=== PATIENT | female | born 1945 | race Caucasian/White ===

== ENCOUNTER 2017-09-05 23:44 | Emergency (ER) | payer MEDICARE, MEDICAID ==
[~2017-09-05] VITALS: Ht 170.2 cm; Wt 90.7 kg
[~2017-09-05 23:44] MED LIST: ACETAMINOPHEN325 M1 PO; ANTIVERT25 MG PO; KEFLEX250 MG PO; NORCO 5-325 TA1 EACH PO; TRANSDERM-SCOP1 EA TD
[2017-09-06] MEDS ORDERED: PROTONIX40 MG PO (01:14)
--- NOTE | 2017-09-06 13:22 | EKG ---
[facility] [address] [facility] [place] [address] Signed Sinus rhythm with premature atrial complexes Otherwise normal ECG No previous ECGs available Confirmed by EHSAN BLACKBURN MD ([id number]) on 09/06/2017 1:22:41 PM Electronically Signed By: EHSAN BLACKBURN MD 09/06/17 1322 PATIENT NAME: SERINA GUERRERO Electrocardiogram DATE OF : 45 PHYSICIAN: EHSAN BLACKBURN MD REPORT #: [id number] REPORT IS CONFIDENTIAL AND NOT TO BE RELEASED WITHOUT AUTHORIZATION
== END 2017-09-06 01:26 | disposition home or self-care (01) ==
LOC: ED 23:44
DX: R07.89 Other chest pain (principal); F31.9 Bipolar disorder, unspecified; F17.200 Nicotine dependence, unspecified, uncomplicated; Z90.49 Acquired absence of other specified parts of digestive tract; Z90.710 Acquired absence of both cervix and uterus
CPT/HCPCS: 71045; 80053; 84484; 85025; 85379; 93005; 93010; 99284

== ENCOUNTER 2017-12-30 20:05 | Emergency (ER) | payer MEDICARE, MEDICAID ==
[~2017-12-30] VITALS: Ht 170.2 cm; Wt 90.7 kg
[~2017-12-30 20:05] MED LIST changes: +PROTONIX40 MG PO
== END 2017-12-30 21:48 | disposition home or self-care (01) ==
LOC: ED 20:05
DX: L72.8 Other follicular cysts of the skin and subcutaneous tissue (principal); F17.200 Nicotine dependence, unspecified, uncomplicated
CPT/HCPCS: 99282

== ENCOUNTER 2018-09-09 05:40 | Day surgery (SDC) | payer MEDICARE, MEDICAID ==
[~2018-09-09] VITALS: Ht 170.2 cm; Wt 83.5 kg
[~2018-09-09 05:40] MED LIST changes: +ALEVE220 M1 PO; +FOSAMAX70 MG PO; +TYLENOL325 M1 PO
[2018-09-09] MEDS ORDERED: IBUPROFEN600 MG PO (08:34)
--- NOTE | 2018-09-09 23:51 | OR ---
[facility] [address] [place], [place] [address] Signed DATE OF OPERATION: 09/09/2018 SURGEON: Gorge Zaman MD PREOPERATIVE DIAGNOSIS: Right upper lobe lung cancer status post right upper lobe resection (thoracoscopic approach, Dr. Cooper). POSTOPERATIVE DIAGNOSIS: Right upper lobe lung cancer status post right upper lobe resection (thoracoscopic approach, Dr. Cooper). PROCEDURES: 1. Placement of left subclavian Port-A-Cath device (Bard port catheter). 2. Surgeon-directed fluoroscopy. ANESTHESIA: Local with monitored anesthesia care, Cassy Bailey CRNA and local 8 mL of 1% lidocaine with epinephrine. INDICATION: This 73-year-old white woman is a patient of Dr. Cleopatra Rain and was found to have a large right upper lobe lung mass. She underwent thoracoscopic resection by Dr. Cooper in the [facility], was found to have no mediastinal lymph node involvement, but given the large size of the lesion, chemotherapy has been recommended by Dr. Lopez, her oncologist. She is admitted at this time to undergo Port-A-Cath placement, anticipating chemotherapy. She understands the risks of bleeding, infection, pneumothorax, and other unforeseen complications related to placement of the device and wished to proceed. FINDINGS: Dark nonpulsatile blood was noted from left subclavian vein. The catheter was placed without problem. The tip of the catheter was noted to be in the superior vena cava. A postprocedure chest x-ray is pending. Good function of the catheter is noted. DESCRIPTION OF PROCEDURE: The patient was brought to the operating room and placed in the supine position with arms at the side. Preoperative antibiotics were given. Sequential compression device stockings used and heparin subcutaneously administered. The upper torso was prepared with a chlorhexidine solution as she was given intravenous sedation. The head turned to the right. The left infraclavicular space was infiltrated with 1% lidocaine with Electronically Signed By: GORGE ZAMAN MD 09/09/18 2351 PATIENT NAME: SERINA GUERRERO OPERATIVE REPORT DATE OF : 45 REPORT #: [id number] PHYSICIAN: GORGE ZAMAN MD PCP: CLEOPATRA RAIN MD REPORT IS CONFIDENTIAL AND NOT TO BE RELEASED WITHOUT AUTHORIZATION [facility] [address] [place], [place] [address] Signed epinephrine. Using the Seldinger technique, the left subclavian vein was easily accessed on 1st pass showing dark nonpulsatile blood. A flexible J-wire from the Penemarie K Murphy port catheter kit was passed down the needle and needle was removed. The fluoroscopy was then performed confirming the wire to be in the right heart system. Additional local anesthetic was injected transversely over the left pectoral area and incision was made and a pocket developed using blunt and electrocautery dissection. The puncture site with the wire emanating from it was incised with an #11 blade. Subsequently dilator and then a dilator and peel-away introducer passed over the wire. The wire and the dilator were removed showing vigorous nonpulsatile retrograde bleeding of venous blood. The previously inspected and irrigated Groshong type catheter was passed down the peel-away sheath. The sheath removed. Aspiration on the catheter showed good return of blood and easy flushing. Not mentioned previously was the partial securing of the port device to the pocket inferiorly. The patient was placed in the neutral position out of mild Trendelenburg and fluoroscopy undertaken. Under fluoroscopic observation, the catheter was withdrawn so that the tip of the catheter is located in the superior vena cava. Using the tunneling device, the catheter was delivered to the pocket area. It was trimmed to the appropriate length and secured to the port with the enclosed collar device per manufacture's instructions. The port was fully secured to the pectoralis fascia with interrupted 2-0 Vicryl suture. Three such sutures were applied so as to avoid rotation of the device. Access of the port device with an angled Craig needle showed easy withdrawal of blood and easy infusion of heparinized saline. The pocket was then closed with interrupted 2-0 Vicryl and skin closed with running subcuticular 3-0 Vicryl as was a puncture site in the infraclavicular space. Percutaneous access of the device with angled Craig needle showed good function of the catheter, easy flushing, and so forth. It aspirated blood well also. Steri-Strips were applied to the wounds as was a Mepilex silver sponge dressing and an OpSite. The postprocedure chest x-ray is anticipated in recovery room. Blood loss was about 10 mL in total. Gorge Zaman MD Electronically Signed By: GORGE ZAMAN MD 09/09/18 0593 PATIENT NAME: SERINA GUERRERO OPERATIVE REPORT DATE OF : 45 REPORT #: [id number] PHYSICIAN: GORGE ZAMAN MD PCP: CLEOPATRA RAIN MD REPORT IS CONFIDENTIAL AND NOT TO BE RELEASED WITHOUT AUTHORIZATION [facility] [address] [place], [place] [address] Signed /[facility] /[id number] cc: MD Cleopatra Panchal MD Copies: MARY JO LOPEZ MD ~ Electronically Signed By: GORGE ZAMAN MD 09/09/18 2351 PATIENT NAME: YOLANDASERINA OPERATIVE REPORT DATE OF : 45 REPORT #: [id number] PHYSICIAN: GORGE ZAMAN MD PCP: CLEOPATRA RAIN MD REPORT IS CONFIDENTIAL AND NOT TO BE RELEASED WITHOUT AUTHORIZATION
[2018-09-17] MEDS ORDERED: ONDANSETRON ODT8 MG PO (09:21)
[2018-09-17] MEDS ORDERED: ATIVAN1 MG PO (09:22)
[2018-09-17] MEDS ORDERED: FOLIC ACID0.4 MG PO (09:23)
[2018-09-17] MEDS ORDERED: DEXAMETHASONE4 MG PO (09:24)
[2018-10-08] MEDS ORDERED: IBUPROFEN200 M1 PO (13:07)
== END 2018-09-09 09:15 | disposition home or self-care (01) ==
LOC: DS 05:40
PROVIDERS: Surgery
PROC: 05H633Z Insertion of Infusion Device into Left Subclavian Vein, Percutaneous Approach (ICD-10-PCS; 2018-09-09)
PROC: B517YZA Fluoroscopy of Left Subclavian Vein using Other Contrast, Guidance (ICD-10-PCS; 2018-09-09)
PROC: 0JH60WZ Insertion of Totally Implantable Vascular Access Device into Chest Subcutaneous Tissue and Fascia, Open Approach (ICD-10-PCS; principal; 2018-09-09 06:45)
DX: C34.11 Malignant neoplasm of upper lobe, right bronchus or lung (principal); I48.92 Unspecified atrial flutter; F32.9 Major depressive disorder, single episode, unspecified; E11.9 Type 2 diabetes mellitus without complications; F17.210 Nicotine dependence, cigarettes, uncomplicated; E66.9 Obesity, unspecified; Z68.30 Body mass index [BMI] 30.0-30.9, adult; Z90.2 Acquired absence of lung [part of]
CPT/HCPCS: 00532; 71045; 77001; C1788; J0690; J1644; J2250; J2704; J3010

== ENCOUNTER 2018-09-15 03:19 | Emergency (ER) | payer MEDICARE, MEDICAID ==
[~2018-09-15] VITALS: Ht 170.2 cm; Wt 83.5 kg
[~2018-09-15 03:19] MED LIST changes: +IBUPROFEN600 MG PO
[2018-09-15] MEDS ORDERED: KEFLEX500 MG PO (03:42)
[2018-09-17] MEDS ORDERED: ONDANSETRON ODT8 MG PO (09:21)
[2018-09-17] MEDS ORDERED: ATIVAN1 MG PO (09:22)
[2018-09-17] MEDS ORDERED: FOLIC ACID0.4 MG PO (09:23)
[2018-09-17] MEDS ORDERED: DEXAMETHASONE4 MG PO (09:24)
[2018-10-08] MEDS ORDERED: IBUPROFEN200 M1 PO (13:07)
== END 2018-09-15 03:51 | disposition home or self-care (01) ==
LOC: ED 03:19
DX: L03.221 Cellulitis of neck (principal); F31.9 Bipolar disorder, unspecified; F17.200 Nicotine dependence, unspecified, uncomplicated; Z85.118 Personal history of other malignant neoplasm of bronchus and lung; Z79.899 Other long term (current) drug therapy
CPT/HCPCS: 99283

== ENCOUNTER 2018-10-17 12:46 | Emergency (ER) | payer MEDICARE, MEDICAID ==
[~2018-10-17] VITALS: Ht 170.2 cm; Wt 82.1 kg
[~2018-10-17 12:46] MED LIST changes: +ATIVAN1 MG PO; +DEXAMETHASONE4 MG PO; +FOLIC ACID0.4 MG PO; +IBUPROFEN200 M1 PO; +KEFLEX500 MG PO; +ONDANSETRON ODT8 MG PO
[2018-10-17] MEDS ORDERED: OXYCODONE HCL5 MG PO (12:51)
== END 2018-10-17 16:20 | disposition home or self-care (01) ==
LOC: ED 12:46
DX: R10.9 Unspecified abdominal pain (principal); F31.9 Bipolar disorder, unspecified; F17.200 Nicotine dependence, unspecified, uncomplicated; Z79.899 Other long term (current) drug therapy
CPT/HCPCS: 99283

== ENCOUNTER 2021-04-12 09:13 | Emergency (ER) | payer MEDICARE, MEDICAID ==
[~2021-04-12] VITALS: Ht 170.2 cm; Wt 81.7 kg
[~2021-04-12 09:13] MED LIST changes: +ALIMTA IV; +CARBOPLATIN150 MG IV; +EMEND150 MG IV; +FLONASE ALLERG9.9 ML NAS; +LIPITOR20 MG; +MIRALAX119 GM; +ONDANSETRO8 MG/50 M2 IV; +OXYCODONE HCL5 MG PO; +POTASSIUM CHLO10 ME1 PO; +PREDNISONE20 MG PO; +TYLENOL325 MG PO; +ULTRAM50 MG PO; +VENTOLIN HFA18 GM INH; +ZITHROMAX250 MG PO
[2021-04-12] MEDS ORDERED: CITALOPRAM HBR20 MG PO (09:45)
--- NOTE | 2021-04-14 12:54 | EKG ---
[facility] [address] [facility] [place] [address] Signed Normal sinus rhythm Normal ECG No previous ECGs available Confirmed by EHSAN BLACKBURN MD ([id number]) on 04/14/2021 12:54:02 PM Electronically Signed By: EHSAN BLACKBURN MD 04/14/21 1254 PATIENT NAME: SERINA GUERRERO Electrocardiogram DATE OF : 45 PHYSICIAN: EHSAN BLACKBURN MD REPORT #: [id number] REPORT IS CONFIDENTIAL AND NOT TO BE RELEASED WITHOUT AUTHORIZATION
== END 2021-04-12 13:06 | disposition home or self-care (01) ==
LOC: ED 09:13
DX: R53.81 Other malaise (principal); F17.200 Nicotine dependence, unspecified, uncomplicated; Z79.899 Other long term (current) drug therapy; Z20.822 Contact with and (suspected) exposure to COVID-19
CPT/HCPCS: 71045; 80053; 81001; 84484; 85025; 85651; 93005; 93010; 99285-25; C9803; U0003

== ENCOUNTER 2021-05-20 10:25 | Emergency (ER) | payer MEDICARE, MEDICAID ==
[~2021-05-20] VITALS: Ht 167.6 cm; Wt 81.7 kg
[~2021-05-20 10:25] MED LIST changes: +CITALOPRAM HBR20 MG PO
== END 2021-05-20 14:15 | disposition home or self-care (01) ==
LOC: ED 10:25
PROC: 0HQFXZZ Repair Right Hand Skin, External Approach (ICD-10-PCS; principal; 2021-05-20)
DX: S61.212A Laceration without foreign body of right middle finger without damage to nail, initial encounter (principal); W27.4XXA Contact with kitchen utensil, initial encounter; F17.200 Nicotine dependence, unspecified, uncomplicated; Z85.118 Personal history of other malignant neoplasm of bronchus and lung
CPT/HCPCS: 12001; 99282-25

== ENCOUNTER 2022-05-07 22:15 | Emergency (ER) | payer MEDICARE, MEDICAID ==
[~2022-05-07] VITALS: Ht 167.6 cm; Wt 79.7 kg
[2022-05-07] MEDS ORDERED: CEPHALEXIN500 M1 PO (22:37)
[2022-05-07] MEDS ORDERED: ALENDRONATE SOD70 MG PO (22:37)
[2022-05-07] MEDS ORDERED: ATORVASTATIN CA20 MG PO (22:38)
[2022-05-07] MEDS ORDERED: CITALOPRAM HBR40 MG PO (22:38)
== END 2022-05-07 23:17 | disposition home or self-care (01) ==
LOC: ED 22:15
DX: L03.011 Cellulitis of right finger (principal); F17.200 Nicotine dependence, unspecified, uncomplicated; Z79.899 Other long term (current) drug therapy
CPT/HCPCS: 99283; A9270

== ENCOUNTER 2023-07-10 07:05 | Day surgery (SDC) | payer MEDICARE, MEDICAID ==
[~2023-07-10] VITALS: Ht 165.1 cm; Wt 79.0 kg
[~2023-07-10 07:05] MED LIST changes: +ALENDRONATE SOD70 MG PO; +ATORVASTATIN CA20 MG PO; +CEPHALEXIN500 M1 PO; +CITALOPRAM HBR40 MG PO
[2023-07-10 07:20] VITALS: BP 140/59
[2023-07-10] MEDS ORDERED: HYDROCODON-ACE1 EA10 PO (09:04)
[2023-07-10 09:36] VITALS: BP 137/49
--- NOTE | 2023-07-13 07:07 | OR ---
[facility] [address] [place], [place] [address] Signed DATE OF OPERATION: 06/09/2023 SURGEON: Josh Webb MD PREOPERATIVE DIAGNOSIS: Trigger finger, left long. POSTOPERATIVE DIAGNOSIS: Trigger finger, left long. PROCEDURE PERFORMED: Trigger finger release, left long. AIRPORT SECURITY SCREENER: None. ANESTHESIA: Kotlik block. TOURNIQUET TIME: 20 minutes. BRIEF HISTORY: Julieta is a 78-year-old female with a long-standing trigger finger that we have been injecting, but she got minimal relief. Risks and benefits of operative treatment were discussed with her and she elected to proceed. DESCRIPTION OF PROCEDURE: Once consent was obtained, she was taken to the operating room. After adequate Micky block was established, the hand was prepped and draped in a standard sterile fashion. The long finger was approached through a 1 cm incision in the distal palmar crease. This was carried through the soft tissue down to the flexor tendon sheath. This was dissected free of overlying soft tissue under loupe magnification. The A1 smooth was identified and was transected using tenotomy scissors. The finger was then moved. She had full flexion and full extension with no triggering or locking. The wound was copiously irrigated with normal saline, closed with 3-0 nylon and injected with 4 mL of 0.25% Marcaine plain. The hand was then dressed with bacitracin, Adaptic, 4 x 8s, and gauze. She tolerated the procedure well. All sponge, needle, and instrument counts were correct. Electronically Signed By: JOSH WEBB MD 07/13/23 0707 PATIENT NAME: JULIETA GUERRERO OPERATIVE REPORT DATE OF : 45 REPORT #: [id number] PHYSICIAN: JOSH WEBB MD PCP: JARETT HEATH MD REPORT IS CONFIDENTIAL AND NOT TO BE RELEASED WITHOUT AUTHORIZATION [address] [place] [address] Signed Josh Webb MD /[facility] /[id number] Copies: ~ Electronically Signed By: JOSH WEBB MD 07/13/23 0707 PATIENT NAME: JULIETA GUERRERO OPERATIVE REPORT DATE OF : 45 REPORT #: [id number] PHYSICIAN: JOSH WEBB MD PCP: JARETT HEATH MD REPORT IS CONFIDENTIAL AND NOT TO BE RELEASED WITHOUT AUTHORIZATION
== END 2023-07-10 09:50 | disposition home or self-care (01) ==
LOC: DS 07:05
PROVIDERS: ATTEND Specialist
PROC: 0RNX0ZZ Release Left Finger Phalangeal Joint, Open Approach (ICD-10-PCS; principal; 2023-07-10 09:15)
DX: M65.332 Trigger finger, left middle finger (principal); E78.00 Pure hypercholesterolemia, unspecified; F17.200 Nicotine dependence, unspecified, uncomplicated
CPT/HCPCS: 01810; J0690; J1100; J1885; J2405; J2704; J2765; J3010; J7121

== ENCOUNTER 2024-01-20 11:25 | Emergency (ER) | payer MEDICARE, OTHER ==
[~2024-01-20] VITALS: Ht 165.1 cm; Wt 79.2 kg
[~2024-01-20 11:25] MED LIST changes: +HYDROCODON-ACE1 EA10 PO
[2024-01-20 11:37] LABS: BASOPHILS 0.5 % (0-2); EOSINOPHILS 0.9 % (0-6); HEMATOCRIT 43.3 % (35.0-50.0); HEMOGLOBIN 14.3 g/dL (12.0-18.0); LYMPHOCYTES 34.4 % (24-44); MCH 30.1 (27-36); MCHC 33.1 g/dl (30-36); MCV 91.1 fl (81-99); MONOCYTES 6.7 % (0-12); NEUTROPHILS 57.5 % (39-80); PLATELET COUNT 274 K/uL (140-440); RBC 4.75 M/ul (4.3-5.7); RDW 15.7 (10.5-15.0)
[2024-01-20 11:53] LABS: ALBUMIN 3.4 g/dL (3.4-5.0); ALBUMIN/GLOBULIN RATIO 0.97 (1.1-2.4); ALCOHOL, MEDICAL <3 ng/dL (<3); ALKALINE PHOSPHATASE 80 U/L (46-116); ALT (SGPT) 8 U/L (14-59); ANION GAP 16.8 (7-21); AST (SGOT) 9 U/L (15-37); BILIRUBIN, TOTAL 0.4 ng/dL (0.2-1.0); BUN/CREATININE RATIO 16.88 (6.0-28.6); CALCIUM 8.7 mg/dL (8.5-10.1); CARBON DIOXIDE 22 mmol/L (21-32); CHLORIDE 103 mmol/L (98-107); CREATININE, SERUM 0.77 mg/dL (0.55-1.02); GLOMERULAR FILTRATION RATE,EST 79 mL/min (>60); POTASSIUM 3.8 mmol/L (3.5-5.1); PROTEIN, TOTAL 6.9 g/dL (6.4-8.2); UREA NITROGEN 13 mg/dL (7-18)
[2024-01-20 12:18] LABS: ABO O; ANTIBODY SCREEN NEGATIVE; RH NEGATIVE
[2024-01-20] MEDS ORDERED: HYDROmorphone HCL 1 MG/ML SYR IV PRN (12:45)
[2024-01-20 13:03] LABS: AMPHETAMINES, URINE NEGATIVE (NEGATIVE); BARBITURATES, URINE NEGATIVE (NEGATIVE); BENZODIAZEPINE, URINE NEGATIVE (NEGATIVE); BUPRENORPHINE, URINE NEGATIVE (NEGATIVE); CANNABINOID, URINE NEGATIVE (NEGATIVE); COCAINE, URINE NEGATIVE (NEGATIVE); ECSTASY, URINE NEGATIVE (NEGATIVE); FENTANYL, URINE POSITIVE (NEGATIVE); METHADONE, URINE NEGATIVE (NEGATIVE); OPIATES, URINE NEGATIVE (NEGATIVE); OXYCODONE, URINE NEGATIVE (NEGATIVE); PHENCYCLIDINE, URINE NEGATIVE (NEGATIVE)
[2024-01-20] MEDS ORDERED: HYDROCODON-ACE1 EA10 PO (15:05)
== END 2024-01-20 16:20 | disposition home or self-care (01) ==
LOC: ED 11:25
PROVIDERS: Emergency Medicine
DX: S52.501A Unspecified fracture of the lower end of right radius, initial encounter for closed fracture (principal); S52.601A Unspecified fracture of lower end of right ulna, initial encounter for closed fracture; S22.31XA Fracture of one rib, right side, initial encounter for closed fracture; M25.551 Pain in right hip; F17.200 Nicotine dependence, unspecified, uncomplicated; W19.XXXA Unspecified fall, initial encounter; Z79.899 Other long term (current) drug therapy
CPT/HCPCS: 36415; 70450; 71100; 71101; 72125; 73090; 73110; 73502; 80053; 80307; 85025; 86850; 86900; 86901; G0480; J1170

== ENCOUNTER 2024-01-31 10:26 | Emergency (ER) | payer MEDICARE, OTHER ==
[~2024-01-31] VITALS: Ht 170.2 cm; Wt 73.0 kg
[~2024-01-31 10:26] MED LIST changes: +ALEVE220 MG PO; +CALCIUM500 MG PO; +DIALYVITE 8001 EAC1 PO; +OSTERA TABLET1 EACH PO
[2024-01-31] MEDS ORDERED: KETOROLAC TROMETHAMINE 15 MG/ML VIAL IM ONE (11:00)
[2024-01-31] MEDS ORDERED: HYDROmorphone HCL 1 MG/ML SYR IM ONE (11:00)
[2024-01-31 12:25] VITALS: BP 156/64
== END 2024-01-31 12:25 | disposition home or self-care (01) ==
LOC: ED 10:26
DX: M54.42 Lumbago with sciatica, left side (principal); F17.200 Nicotine dependence, unspecified, uncomplicated
CPT/HCPCS: 96372; 99283; J1170; J1885

== ENCOUNTER 2024-02-04 16:48 | Emergency (ER) | payer MEDICARE, OTHER ==
[~2024-02-04] VITALS: Ht 170.2 cm; Wt 80.0 kg
[2024-02-04] MEDS ORDERED: HYDROmorphone HCL 1 MG/ML SYR IV PRN (19:30)
[2024-02-04 20:19] LABS: BILIRUBIN, URINE NEGATIVE (negative); BLOOD/HGB, URINE NEGATIVE (Negative); KETONE, URINE >=80 (Negative); LEUK ESTERASE, URINE NEGATIVE (negative); NITRITE, URINE NEGATIVE (negative)
[2024-02-04] MEDS ORDERED: TRAMADOL HCL50 MG PO (20:25)
[2024-02-04] MEDS ORDERED: TRAMADOL HCL 50 MG HOME.PACK PO ONE (20:30)
[2024-02-04 21:40] VITALS: BP 145/66
== END 2024-02-04 21:40 | disposition home or self-care (01) ==
LOC: ED 16:48
PROVIDERS: Family Medicine
DX: S39.011A Strain of muscle, fascia and tendon of abdomen, initial encounter (principal); S33.5XXA Sprain of ligaments of lumbar spine, initial encounter; S76.219A Strain of adductor muscle, fascia and tendon of unspecified thigh, initial encounter; F17.200 Nicotine dependence, unspecified, uncomplicated; W19.XXXA Unspecified fall, initial encounter; Z79.899 Other long term (current) drug therapy
CPT/HCPCS: 81003; 96374; 99283-25; A9270; J1170